=== PATIENT | male | born 1985 | race Caucasian/White ===

== ENCOUNTER 2019-02-25 19:05 | Emergency (ER) | payer BC, SELFPAY ==
[2019-02-25 10:33] VITALS: BMI 27.0
[2019-02-25 19:06] VITALS: BP 139/96; PULSE 108; RESP 16; TEMP 38.2; O2SAT 96; BMI 28.7
--- NOTE | 2019-02-25 19:26 | CT_ITS ---
STUDY: CT BRAIN WITHOUT CONTRAST REASON FOR EXAM: Male, 33 years old. Frontal headache. Fever. RADIATION DOSAGE (If Supplied By Facility): CTDIvol = ( 44.99 ) mGy, DLP = ( 880.47 ) mGycm TECHNIQUE: Transaxial CT imaging of the brain was performed without administration of intravenous contrast material. Individualized dose optimization techniques were used for this CT. COMPARISON: No relevant priors. FINDINGS: Normal soft tissue structures. Normal calvarium. Normal size ventricles and extra-axial spaces for the patient's age. Normal white matter tracts of the cerebral hemispheres. Normal basal ganglia and thalami. Normal brainstem. Normal cerebellum. There is no intracranial hemorrhage. There are no findings of an acute ischemic infarction. Normal visualized paranasal sinuses. CT/Brain/Head without Contrast IMPRESSION: No acute intracranial process. Electronically Signed: Snow Carvajal MD at 20:08 EDT Tel , Service support ,
--- NOTE | 2019-02-25 19:27 | ED.VIS.GEN ---
History of Present Illness Chief Complaint: Fever Detail of Chief Complaint: Fever x3 days Informant: Patient, Family Onset: Days Current Severity: Mild Maximum Severity: Moderate Narrative: Patient presents with fever intermittently over the past 3 days. He had a frontal headache and some slight tightness across his abdomen. T-max was reportedly 101.9. He was seen at urgent care this morning. Urinalysis showed large ketones and nitrates. He was given a prescription for amoxicillin to cover sinusitis, but patient states the nurse practitioner changed her mind and told him not to take it. He presents with recurrent fever again tonight. He has not taken Tylenol or ibuprofen since 10 PM last evening. Past Medical History - Allergies and Home Meds Allergies/Adverse Reactions: Allergies cefaclor [From [facility]] Allergy (Verified 02/25/19 19:09) Rash coconut oil Allergy (Verified 02/25/19 19:09) Angioedema Primary Care Physician: Zeus Cordova DO [Primary Care Provider] - Prior records reviewed: Yes Past Medical History: - - Reviewed Smoking Status: Never smoker Review of Systems General: Reports: Chills, Fever Eyes: Denies: Visual changes - bilaterally ENT: Denies: Bilateral ear pain Cardiovascular: Denies: Chest pain Respiratory: Denies: Cough, Sputum Gastrointestinal: Reports: Abdominal pain. Denies: Nausea, Vomiting, Diarrhea, Constipation Musculoskeletal: Denies: Neck pain, Back pain, Extremity Pain Skin: Denies: Rash Neurological: Reports: Headache. Denies: Weakness, Parasthesia, Numbness Endocrine: Denies: Polyuria, Polydipsia Hematologic: Denies: Easy bruising Allergy: Denies: Uticaria Physical Exam Vital Signs/Narrative: Vital Signs Temp Pulse Resp BP Pulse Ox 02/25/19 19:06 100.8 F H 108 H 16 139/96 H 96 Inital Vital Signs reviewed: Yes General: Well nourished, Well developed Head: Normocephalic Eyes: Perrl, EOMI ENT: - - Right TM blocked by cerumen Neck: Supple, Nontender, - - No meningismus Cardiovascular: Regular rate, Regular rhythm Respiratory: No distress, CTA bilaterally Abdomen: Soft, Nontender, Normal bowel sounds Back: Nontender Extremities: Nontender, No edema Skin: Normal color, No rash Neurological: Alert, Oriented x3 Psychological: Normal affect Diagnostic/Tx/Re-eval Impressions Brain CT 02/25/19 19:26 IMPRESSION: No acute intracranial process. Electronically Signed: Snow Carvajal MD at 20:08 EDT Tel , Service support , 02/25/19 19:26 Brain/Head without Contrast [CT] Stat Laboratory Results 02/25/19 02/25/19 02/25/19 19:50 19:50 19:50 WBC 2.6 L RBC 5.15 Hgb 14.4 Hct 43.6 MCV 84.7 MCH 28.0 MCHC 33.0 RDW Std Deviation 40.2 RDW Coeff of [place] 13.0 Plt Count 93 L MPV 9.7 Immature Gran % (Auto) 0.400 Neut % (Auto) 59.6 Lymph % (Auto) 22.1 [place] % (Auto) 16.4 H Eos % (Auto) 1.1 Baso % (Auto) 0.4 Absolute Neuts (auto) 1.6 L Absolute Lymphs (auto) 0.58 L Nucleated RBC % 0 Differential Comment SCANNED Diff Path Review May foll Sodium 138 Potassium 3.7 Chloride 103 Carbon Dioxide 31.0 Anion Gap 4 L BUN 12 Creatinine 1.31 H Estim Creat Clear Calc 90.64 Est GFR (MDRD) Af Amer 81 Est GFR (MDRD) Non-Af 67 BUN/Creatinine Ratio 9.2 L Glucose 108 H Calcium 9.1 Urine Color Yellow Urine Clarity Clear Urine pH 5.0 Ur Specific [place] 1.020 Urine Protein 15 H Urine Glucose (UA) Normal Urine Ketones 5 H Urine Occult Blood 25 H Urine Nitrite Negative Urine Bilirubin Negative Urine Urobilinogen 4 H Ur Leukocyte Esterase Negative Urine RBC 0-5 SEEN Urine WBC 0-5 SEEN Ur Squamous Epith Cells 0-5 SEEN Urine Bacteria 2+ Urine Mucus 3+ - Medical Decision Making Patient was given IV fluids and IV Toradol. Repeat temperature is 99.1. Heart rate is now in the 80s. Right ear will be treated with Debrox and irrigation. Test results discussed with patient and family at bedside. I advised him at this time I see only sign of viral syndrome. No need for antibiotics. He is encouraged to continue push fluids to maintain hydration. ED Disposition - Plan for ED Patient: Disposition: Home or Assisted Living Diagnosis: Viral syndrome Instructions: VIRAL SYNDROME (Adult) Referrals: Zeus Cordova DO [Primary Care Provider] - 3-5 Days if not improving
[2019-02-25] MEDS: 0.9% Normal Saline 1,000 ML 1000 ML IV (19:45)
[2019-02-25] MEDS: Ketorolac 30 MG/ML Syringe IV (19:46)
[2019-02-25 20:01] LABS: Color, Urine Yellow (Yellow); Glucose, Dipstick Normal (Normal); Ketone-Dipstick 5 mg/dl (Negative); Leukocyte Esterase-Dipstick Negative /ul (Negative); Nitrite-Dipstick Negative (Negative); Occult Blood-Urine 25 /ul (Negative); Protein-Dipstick 15 mg/dl (Negative); Urine Bilirubin Dipstick Negative (Negative); Urine Clarity Clear (Clear); Urine Urobilinogen 4 mg/dl (Normal)
[2019-02-25 20:06] VITALS: BP 133/80; PULSE 85; RESP 15; TEMP 37.3; O2SAT 98
[2019-02-25 20:07] LABS: Absolute Lymphocyte Count 0.58 X10^3/uL (0.83-4.51); Absolute Neutrophil Count 1.6 X10^3/uL (2.0-7.7); Basophil# 0.01 X10^3/uL; Basophil% 0.4 % (0-1); Eosinophil# 0.03 X10^3/uL; Eosinophils% 1.1 % (0-5); Hematocrit 43.6 % (40-54); Hemoglobin 14.4 g/dL (13.0-16.5); Lymphocyte # 0.58 X10^3/ul (4.0); Lymphocyte % 22.1 % (19-41); Mean Corpuscular Volume 84.7 fL (80-94); Mean Platelet Vol. 9.7 fl (6.2-12.0); Monocyte# 0.43 X10^3/uL; Monocyte% 16.4 % (0-10); NRBC Flagged by Analyzer 0 % (0-5); Neutrophil # 1.56 X10^3/uL (2.7-7.7); Neutrophil % 59.6 % (47-70); POSITIVE DIFFERENTIAL YES; POSITIVE MORPHOLOGY YES; Platelet Count 93 K/mm3 (150-450); RBC Distribution Width SD 40.2 fl (35.1-43.9); Red Blood Count 5.15 M/mm3 (4.6-6.2); White Blood Count 2.6 K/mm3 (4.4-11.0)
[2019-02-25 20:10] LABS: Differential Indicated SCAN CRITERIA MET
[2019-02-25 20:16] LABS: Anion Gap 4 (5-15); BUN 12 mg/dL (7-18); BUN/Creat Ratio 9.2 RATIO (10-20); Calcium,Total 9.1 mg/dL (8.5-10.1); Chloride 103 mmol/L (98-107); Creatinine, Serum 1.31 mg/dL (0.70-1.30); EST Glomerular Filtration Rate 67 mL/min (>60); Est Glom Filt Rate - Afr Amer 81 mL/min (>60); Estimated Creatinine Clearance 90.64 ml/min; Glucose 108 mg/dL (74-106); Potassium 3.7 mmol/L (3.5-5.1); Sodium Level 138 mmol/L (136-145)
[2019-02-25 20:27] LABS: Bacteria 2+ /hpf (None Seen); Mucous, Urine 3+ /hpf (<or=2+); Red Blood Cells-Urine 0-5 SEEN /hpf (0-5); Squamous Epithelial Cells - UA 0-5 SEEN /hpf (0-5); White Blood Cells 0-5 SEEN /hpf (0-5)
[2019-02-25 20:37] LABS: Differential Comment SCANNED
[2019-02-25] MEDS: Carbamide Peroxide 15 ML Bottle 5 DRP OTIC (20:40)
[2019-02-25 21:19] VITALS: BP 133/80; PULSE 85; RESP 15; TEMP 37.4; O2SAT 98
[2019-02-28 12:20] LABS: Pathologist Review Reviewed
== END 2019-02-25 21:35 | disposition home or self-care (01) ==
PROVIDERS: Emergency Provider Emergency Medicine; Family Provider Student in an Organized Health Care Education/Training Program; PCP Student in an Organized Health Care Education/Training Program
DX: B34.9 Viral infection, unspecified (principal); R51 Headache; R10.9 Unspecified abdominal pain
CPT/HCPCS: 70450; 80048; 81001; 85025; 96361; 96374; 99284; J7030; A4216

== ENCOUNTER → 2019-02-25 | Outpatient (CLI) | payer BC, SELFPAY ==
[2019-02-25 10:33] VITALS: BMI 27.0
[2019-02-25 14:23] LABS: Bacteria 0 SEEN /hpf (None Seen); Red Blood Cells-Urine 0 SEEN /hpf (0-5); Squamous Epithelial Cells - UA 0 SEEN /hpf (0-5)
[2019-02-25 14:43] LABS: Color, Urine Amber (Yellow); Glucose, Dipstick Normal (Normal); Ketone-Dipstick 50 mg/dl (Negative); Leukocyte Esterase-Dipstick 25 /ul (Negative); Nitrite-Dipstick Positive (Negative); Occult Blood-Urine 10 /ul (Negative); Protein-Dipstick 30 mg/dl (Negative); Urine Clarity Clear (Clear); Urine Urobilinogen 4 mg/dl (Normal)
[2019-02-25 14:58] LABS: Urine Bilirubin Dipstick 1 mg/dL (Negative)
[2019-02-25 15:03] LABS: Mucous, Urine 2+ /hpf (<or=2+)
[2019-02-25 15:04] LABS: White Blood Cells 0-5 SEEN /hpf (0-5)
== END | disposition home or self-care (01) ==
LOC: LABSPEC 14:18
PROVIDERS: Family Provider Preventive Medicine Occupational Medicine; PCP Preventive Medicine Occupational Medicine; Referring Provider Preventive Medicine Occupational Medicine; Visit Provider Physician Assistant Medical
DX: R11.0 Nausea (principal); R50.9 Fever, unspecified; R51 Headache
CPT/HCPCS: 81001; 87077; 87086; 87088; 87186

== ENCOUNTER 2019-05-17 17:04 | Emergency (ER) | payer BC, SELFPAY ==
[2019-05-17 17:05] VITALS: BP 138/75; PULSE 68; RESP 15; TEMP 35.9; O2SAT 100; BMI 30.2
--- NOTE | 2019-05-17 17:19 | CT_ITS ---
STUDY: CT ABDOMEN AND PELVIS WITH CONTRAST REASON FOR EXAM: Male, 34 years old. Abdominal pain and rectal bleeding. RADIATION DOSAGE (If Supplied By Facility): CTDIvol = ( 22.40 ) mGy, DLP = ( 1210.78 ) mGycm TECHNIQUE: Transaxial images were obtained from the dome of the diaphragm to the symphysis pubis with oral contrast. Oral and amp; IV Gastrografin and amp; 100mL Isovue-300 100ML was administered. Sagittal and coronal images were reconstructed. Individualized dose optimization techniques were used for this CT. COMPARISON: None. FINDINGS: The visualized lung bases are unremarkable. The visualized portions of the heart are within normal limits. Normal liver. The gallbladder is contracted. Normal spleen. Normal pancreas. Normal bilateral adrenal glands. Normal right kidney. Normal left kidney. Normal visualized stomach. Normal small intestine. Evaluation of the colon is limited because it is not opacified. There is moderate fecal retention. No definite acute abnormality. No definite wall thickening. The appendix is visualized and appears normal. Normal abdominal aorta. Normal inferior vena cava. Normal retroperitoneum. Normal urinary bladder. There is a small umbilical hernia containing fat. Normal osseous structures. CT/Abdomen/Pelvis WITH Contrast IMPRESSION: No definite acute abnormality seen. Electronically Signed: Vidal Lan MD at 19:18 EST , Service support ,
[2019-05-17] MEDS: 0.9% Normal Saline 1,000 ML 125 ML IV (17:35)
[2019-05-17 17:49] LABS: Absolute Lymphocyte Count 2.18 X10^3/uL (0.83-4.51); Absolute Neutrophil Count 2.4 X10^3/uL (2.0-7.7); Basophil# 0.04 X10^3/uL; Basophil% 0.7 % (0-1); Eosinophil# 0.52 X10^3/uL; Eosinophils% 9.4 % (0-5); Hematocrit 44.9 % (40-54); Lymphocyte # 2.18 X10^3/ul (4.0); Lymphocyte % 39.5 % (19-41); Mean Corp Hgb Conc 33.4 g/dL (32-36); Mean Corpuscular Hgb 28.2 pg (27.0-32.0); Mean Corpuscular Volume 84.4 fL (80-94); Mean Platelet Vol. 8.9 fl (6.2-12.0); Monocyte# 0.41 X10^3/uL; Monocyte% 7.4 % (0-10); NRBC Flagged by Analyzer 0 % (0-5); Neutrophil # 2.35 X10^3/uL (2.7-7.7); Neutrophil % 42.6 % (47-70); Platelet Count 200 K/mm3 (150-450); RBC Distribution Width CV 13.3 % (11.6-14.6); RBC Distribution Width SD 40.9 fl (35.1-43.9); Red Blood Count 5.32 M/mm3 (4.6-6.2); White Blood Count 5.5 K/mm3 (4.4-11.0)
[2019-05-17 18:06] LABS: BUN 10 mg/dL (7-18); Creatinine, Serum 1.16 mg/dL (0.70-1.30); EST Glomerular Filtration Rate 77 mL/min (>60); Estimated Creatinine Clearance 101.41 ml/min; Glucose 77 mg/dL (74-106)
[2019-05-17 18:07] LABS: Anion Gap 5 (5-15); BUN/Creat Ratio 8.6 RATIO (10-20); Calcium,Total 9.6 mg/dL (8.5-10.1); Chloride 104 mmol/L (98-107); Est Glom Filt Rate - Afr Amer 93 mL/min (>60); Potassium 3.8 mmol/L (3.5-5.1); Sodium Level 140 mmol/L (136-145)
[2019-05-17 18:11] LABS: Lactic Acid 1.4 mmol/L (0.4-2.0)
--- NOTE | 2019-05-17 18:21 | ED.VISSUMM ---
- ER Visit Summary Date of Service: 05/17/19 Chief Complaint: [Rectal bleeding] History of Present Illness: The patient is a 34 M [presents to the emergency department complaint of blood in stool for the last 5 days. Patient states that every time he was in the bathroom there is blood mixed in with the stool in the toilet bowl as well as the toilet paper. Patient denies significant abdominal pain. Has had no fever. Is had no vomiting. There is no family history of inflammatory bowel disease. Patient has history of eosinophilic esophagitis and has had EGDs in the past but never colonoscopy. Is feeling lightheaded or dizzy.] Physical Examination: [HEENT-PERRLA, EOMI. Cranial nerves II through XII grossly intact. TMs clear. Mucous membranes moist. No adenopathy. Cardiovascular-regular rate and rhythm without murmur or ectopy Lungs-clear to auscultation, chest wall stable without crepitus or subcu emphysema Abdomen-normoactive bowel sounds, soft. Patient has tenderness palpation over the suprapubic region. There is no rebound, rigidity, or perineal signs. Rectal exam-no fissures noted no hemorrhoids noted. Patient had brown stool in the rectal vault that was Hemoccult positive. No masses noted in the rectal vault. Extremities-intact ?4, normal range of motion, normal pulses, atraumatic] Test Results: [CBC with differential obtained as normal with hemoglobin 15 and hematocrit 45. Chemistries unremarkable.] CT scan of the abdomen pelvis with IV and p.o. contrast was normal. Emergency Department Course and Treatment: [Patient given normal saline. Results discussed with patient.] Treatment Plan: [Patient to follow-up with primary care physician within next 3 to 5 days. Patient also will be referred to general surgeon on-call for no doc and that will be Dr. Wiliam Gan. Patient also sees a power reactor operator and he understands he can follow-up with Dr. Garcia for colonoscopy also. Advised to return to the emergency department if persistent heavy bleeding or if he should be passing clots, worsening abdominal pain, fever, or condition should worsen anyway.] Disposition: [Discharged home in stable condition.] Impression: [Lower GI bleeding-stable] This note was generated with [employer] dictation software. It may contain incorrect words, spelling, and punctuation that were not noted in review of the chart prior to signing ED Disposition - Plan for ED Patient: Referrals: Zeus Cordova DO [Primary Care Provider] -
--- NOTE | 2019-05-17 19:39 | ED.DEP ---
ED Disposition - Plan for ED Patient: Instructions: RECTAL BLEED, Stable Referrals: Zeus Cordova DO [Primary Care Provider] - Wiliam Gan MD [STAFF PHYSICIAN] - 3-5 Days
[2019-05-17 19:49] VITALS: BP 126/76; PULSE 70; RESP 18; O2SAT 100
== END 2019-05-17 19:50 | disposition home or self-care (01) ==
LOC: ED 17:55
PROVIDERS: Emergency Provider Emergency Medicine; Family Provider Student in an Organized Health Care Education/Training Program; PCP Student in an Organized Health Care Education/Training Program
DX: K92.1 Melena (principal); Z87.19 Personal history of other diseases of the digestive system
CPT/HCPCS: 74177; 80048; 82274; 83605; 85025; 96360; 96361; 99285; J7030; Q9967; A4216

== ENCOUNTER 2019-06-09 08:18 | Day surgery (SDC) | payer BC, SELFPAY ==
--- NOTE | 2019-05-30 04:40 | HP_ITS ---
Intake Vital Signs 05/30/19 Body Mass Index (BMI) 30.2 05/30/19 Height 6 ft 1 in 05/30/19 Weight: 215 lb 05/30/19 Body Mass Index (BMI) 28.3 05/30/19 Blood Pressure 127/79 H 05/30/19 Blood Pressure Location Rt brachial 05/30/19 Blood Pressure Position Sitting 05/30/19 Respiratory Rate 16 05/30/19 Pulse Rate 73 05/30/19 Pulse Source Monitor 05/30/19 Temperature 98.5 F 05/30/19 Temperature Source Oral 05/30/19 Pulse Ox 100 05/30/19 Oxygen Delivery Method room air Intake Visit Reasons: SEEN IN ER/RECTAL BLEED Chief Complaint: headache, throbbing, fever and nausea File System Installer Required: No Is patient in pain?: No Allergies cefaclor [From Ceclor] Allergy (Verified 05/30/19 15:14) Rash coconut oil Allergy (Verified 05/30/19 15:14) Angioedema Medications pantoprazole 40 mg tablet,delayed release 40 mg PO DAILY 05/30/19 [History Confirmed 05/30/19] [facility] Medical History Blood in stool (Acute) Difficulty swallowing (Acute) Eosinophilic esophagitis (Acute) Surgical History Hx of rhinoplasty (Acute) History of esophagogastroduodenoscopy (EGD) (Acute) Family History Mother Osteopenia Father Hypertension Social History (Updated 05/30/19 @ 16:47 by Wiliam Gan MD) Smoking Status: Never smoker second hand exposure: No alcohol intake: never substance use type: does not use caffeine: Yes what type of physical activity do you participate in: none frequency: does not exercise seatbelt use: always HPI HPI HPI: DAMIAN DREW, is a 34 M who presents to the office today for HPI HPI Surgical H&P: Yes HPI: DAMIAN DREW, is a 34 M who presents to the office today for surgical consultation regarding episode of rectal bleeding. The patient states he had 3 different episodes. He was actually seen at the [facility] emergency room on May 17, 2019. Impression was lower GI bleeding stable. The patient did have a CT abdomen pelvis done. Small umbilical hernia with fat. No acute findings. White blood cell count was 5.5 with a hemo-15 hematocrit 44.9 platelet count 200,000 with a normal differential. BUN is 10 creatinine 1.16. He was referred for surgical consultation. Primary care is . Patient states that since his ER visit the rectal bleeding is stopped. He does not associated with pain. He is never had a colonoscopy. There is no family history of colon cancer. He has not any weight loss. He works for [email or web address] in the [employer]. His history is notable for at least 4-year history of eosinophilic esophagitis. This by report was managed by Dr. Bala Garcia. The patient is on chronic pantoprazole but no other treatment. Patient's most recent endoscopy was December 16, 2018 where an upper endoscopy with balloon dilatation using a 12 and then of 13.5 and a 15 mm balloon was performed. The patient states that Dr. Garcia recommended annual upper endoscopies with annual dilatation. The patient does recall that previously he initially was seen by an road crossing guard with skin testing. It does not appear that he is under any intensive medical treatment at the moment. He is looking for a GI replacement for management of his eosinophilic esophagitis. ROS General General: No weight change, appetite, fatigue, colon cancer, breast cancer or weakness HEENT HEENT: Yes difficulty swallowing; no eye injury, eye surgery, swollen glands or hoarseness Endo Endocrine: No thyroid disease, diabetes mellitus, thyroid cancer, Hair loss, heat intolerance or cold intolerance Skin Skin: No rash or changing moles Musc Musculoskeletal: No back problems, arthritis, rheumatoid arthritis, gout or joint pain Cardio Cardiovascular: No murmur, pacemaker, heart disease, atrial fibrillation, high blood pressure, heart attack, heart stent, palpitations, shortness of breat with exertion or chest pain Psych Psychiatric: No depression, anxiety or hearing voices Resp Respiratory: No shortness of breath, No sleep apnea, No cough, No COPD, No asthma, No emphysema, No wheezing Gastro Gastrointestinal: No abdominal pain, No nausea or vomiting, No diarrhea, No constipation, Yes blood in stool, No acid reflux, No hemorrhoids, No ulcers, No gallbladder problem, No black,tarry stools Christian Hematologic: No blood thinners, No blood disorders, No bleeding, No anemia, No blood clots Neuro Neurologic: No system reviewed and no additional complaints, except as docu, No as per HPI, No abnormal walking, No abnormal hearing, No abnormal movements, No abnormal speech, No behavioral changes, No burning sensations, No confusion, No seizure-like activity, No unsteadiness, No dizziness, No localized weakness, No frequent falls, No headache(s), No lack of coordination, No loss of vision, No memory loss, No numbness, No other visual disturbances, No radiating pain, No restless legs, No sensory deficit, No fainting, No tingling, No tremor(s), No weakness, No other Exam Const General: cooperative, healthy appearing, comfortable Nutritional Appearance: average body habitus Orientation: alert, awake HENGA Head: normal to inspection Chest Chest palpation & inspection: normal inspection of the chest Resp Effort & Inspection: normal respiratory effort Auscultation: clear to auscultation bilaterally Cardio Rate: regular rate Rhythm: regular rhythm Heart Sounds: no murmurs GI Palpation: soft, no hepatosplenomegaly Auscultation: normal bowel sounds Skin General: no rashes or lesions noted Neuro Cognition: normal cognition Extrem General: no calf tenderness bilaterally Psych Affect: normal affect Assessment & Plan Problems 1. Rectal bleeding K62.5 2. Eosinophilic esophagitis K20.0 Plan For the patient's rectal bleeding I recommend to him a colonoscopy with possible biopsy or polypectomy as indicated. He has had an opportunity to ask and have questions answered. We will schedule and expedite his care. Regarding taking over management of his eosinophilic esophagitis I declined. I did not feel that that was in my area of expertise I recommended to him that he obtain replacement gastrology with expertise in this manner. We did offer him the opportunity to be reevaluated by allergy. I suggested to him that it did not seem feasible to continue with annual upper endoscopy and dilatations for the rest of his life. However, I did make it very clear that I would not be managing or supervising the care of this process. He has had an opportunity to ask and have questions answered. We will assist as possible with additional referrals. I will copy my plan of care and approach to Dr. Cordova so that he to can participate in this patient's long-term he has an active esophagitis management. CC: Dr. Zeus Gan M.D., F.A.C.S. Coding Level of Care Code Off vis,new,level 4 Diagnoses Rectal bleeding K62.5 Eosinophilic esophagitis K20.0 Time Spent (min) 45 05/30/19 8378 <Electronically signed by Wiliam heredia MD> Date _ Wiliam Gan MD I have re-examined the patient. There are no clinical changes since date of exam.
[2019-05-30 15:16] VITALS: BMI 30.2
[2019-06-09 08:59] VITALS: BP 139/79; PULSE 69; RESP 18; TEMP 36.6; O2SAT 100; BMI 29.3
[2019-06-09] MEDS: Lactated Ringers 1,000 ML 100 ML IV (09:40)
[2019-06-09 10:18] VITALS: BP 121/78; BP 139/79; PULSE 76; RESP 16; TEMP 36.9; O2SAT 99
--- NOTE | 2019-06-09 10:19 | OP.COLON_ITS ---
Patient Name: Jose Manuel Deluna Procedure Date: 06/09/2019 9:55 AM Date of : 1985 Age: 34 Procedure: Colonoscopy Indications: Rectal bleeding Providers: Wiliam Gan MD Referring MD: Zeus Cordova Do Medicines: See the Anesthesia note for documentation of the administered medications Patient Profile: Last Colonoscopy: none. The patient's first colonoscopy is today. Complications: No immediate complications. Procedure: Pre-Anesthesia Assessment: - Prior to the procedure, a History and Physical was performed, and patient medications and allergies were reviewed. The patient's tolerance of previous anesthesia was also reviewed. The risks and benefits of the procedure and the sedation options and risks were discussed with the patient. All questions were answered, and informed consent was obtained. Prior Anticoagulants: The patient has taken no previous anticoagulant or antiplatelet agents. ASA Grade Assessment: II - A patient with mild systemic disease. After reviewing the risks and benefits, the patient was deemed in satisfactory condition to undergo the procedure. After I obtained informed consent, the scope was passed under direct vision. Throughout the procedure, the patient's blood pressure, pulse, and oxygen saturations were monitored continuously. The Colonoscope was introduced through the anus and advanced to the cecum, identified by appendiceal orifice and ileocecal valve. The colonoscopy was performed without difficulty. The patient tolerated the procedure well. The quality of the bowel preparation was good. The ileocecal valve and the appendiceal orifice were photographed. Scope In: 10:03:15 AM Scope Withdrawal Time 0 hours 6 minutes 27 seconds Scope Out: 10:14:08 AM Total Procedure Duration Time 0 hours 10 minutes 53 seconds Findings: The digital rectal exam findings include non-thrombosed external hemorrhoids and internal hemorrhoids that prolapse with straining, but require manual replacement into the anal canal (Grade III). Pertinent negatives include normal prostate (size, shape, and consistency). The colon (entire examined portion) appeared normal. Impression: - Non-thrombosed external hemorrhoids and internal hemorrhoids that prolapse with straining, but require manual replacement into the anal canal (Grade III) found on digital rectal exam I suspect that his hemorrhoids were the source of previous rectal bleeding. Pt states that his rectal bleeding has stopped.. - The entire examined colon is normal. - No specimens collected. Recommendation: - Discharge patient to home. - Resume previous diet. - Continue present medications. Take fiber supplementation as needed or routinely. - Repeat colonoscopy age 50 for screening purposes. Procedure Code(s): --- Professional --- 64381, Colonoscopy, flexible; diagnostic, including collection of specimen(s) by brushing or washing, when performed (separate procedure) Diagnosis Code(s): --- Professional --- K64.2, Third degree hemorrhoids K64.4, Residual hemorrhoidal skin tags K62.5, Hemorrhage of anus and rectum CPT copyright 2017 [employer]. All rights reserved. The codes documented in this report are preliminary and upon electrical systems design engineer review may be revised to meet current compliance requirements. Wiliam Gan MD 06/09/2019 10:19:22 AM This report has been signed electronically. Number of Addenda: 0 Note Initiated On: 06/09/2019 9:55 AM
[2019-06-09 10:20] VITALS: BP 119/77; BP 139/79; PULSE 74; RESP 16; O2SAT 99
[2019-06-09 10:25] VITALS: BP 114/80; BP 139/79; PULSE 75; RESP 16; O2SAT 100
[2019-06-09 10:30] VITALS: BP 115/76; BP 139/79; PULSE 70; RESP 16; TEMP 37.1; O2SAT 99
[2019-06-09 10:44] VITALS: BP 139/79
== END 2019-06-09 11:13 | disposition home or self-care (01) ==
LOC: EN 08:19 → AC 08:24
PROVIDERS: Family Provider Student in an Organized Health Care Education/Training Program; PCP Student in an Organized Health Care Education/Training Program; Referring Provider Student in an Organized Health Care Education/Training Program; Visit Provider Surgery
PROC: 0DJD8ZZ Inspection of Lower Intestinal Tract, Via Natural or Artificial Opening Endoscopic (ICD-10-PCS; CPT 45378; principal; 2019-06-09 09:25)
DX: K64.2 Third degree hemorrhoids (principal); K64.4 Residual hemorrhoidal skin tags; K20.0 Eosinophilic esophagitis; K21.9 Gastro-esophageal reflux disease without esophagitis
CPT/HCPCS: 45378; J7120